=== PATIENT | female | born 1980 | race Caucasian/White ===

== ENCOUNTER → 2017-07-12 | Outpatient (CLI) | payer BC ==
[~2017-07-12] MED LIST: GADOBUTROL 7.5 MMOL/7.5 ML PFS ONE
== END | disposition home or self-care (01) ==
LOC: RAD 15:55
PROVIDERS: ATTEND Internal Medicine Cardiovascular Disease
DX: D35.4 Benign neoplasm of pineal gland (principal)
CPT/HCPCS: 70553; A9585